=== PATIENT | female | born 1950 | race African-American/Black ===

== ENCOUNTER 2021-02-22 16:13 | Inpatient (IN) ==
[2021-02-22] MEDS ORDERED: BROVANA ONE (21:14)
[2021-02-22] MEDS ORDERED: PULMICORT NEB TX 0.5 MG NEB ONE (21:15)
[2021-02-22] MEDS ORDERED: Atrovent NEB TX 0.02% ONE (21:15)
[2021-02-22] MEDS: PULMICORT NEB TX 0.5 MG NEB SCH (21:20)
[2021-02-22] MEDS: Atrovent NEB TX 0.02% NEB SCH (21:20)
[2021-02-22] MEDS: BROVANA IN SCH (21:20)
[2021-02-22] MEDS ORDERED: SALINE 3% 15 ML NEB TX ONE (21:35)
[2021-02-22 21:56] LABS: BASOPHILS # (AUTO) 0.1 X10^3/uL (0.0-0.1); MEAN CORPUSCULAR VOLUME 72.1 fL (80.0-100.0); MEAN PLATELET VOLUME 9.1 fL (7.4-11.0)
[2021-02-22] MEDS: NS 1000 ML 1,000 ML IV SCH (22:00)
[2021-02-22 22:03] LABS: EOSINOPHILS # (AUTO) 0.3 x10^3/uL (0.0-0.2); EOSINOPHILS % (AUTO) 2.3 % (0.9-2.9); HEMATOCRIT 36.4 % (36.0-47.0); LYMPHOCYTES # (AUTO) 3.4 X10^3/uL (1.3-2.9); LYMPHOCYTES % (AUTO) 31.2 % (21.0-51.0); MEAN CORPUSCULAR HEMOGLOBIN 21.8 pg (27.0-34.0); MEAN CORPUSCULAR HGB CONC 30.3 g/dL (33.0-35.0); MONOCYTES # (AUTO) 0.9 x10^3/uL (0.3-0.8); MONOCYTES % (AUTO) 8.5 % (0.0-13.0); NEUTROPHILS # (AUTO) 6.3 x10^3/uL (2.2-4.8); PLATELET COUNT 324 X10^3/uL (150.0-450.0); RED BLOOD COUNT 5.05 X10^6/uL (3.5-5.4); RED CELL DISTRIBUTION WIDTH 14.9 % (11.6-16.5)
[2021-02-22 22:06] LABS: ALANINE AMINOTRANSFERASE 23 Units/L (12-78); ALBUMIN 3.7 g/dL (3.4-5.0); ALKALINE PHOSPHATASE 73 Units/L (46-116); ASPARTATE AMINO TRANSFERASE 14 Units/L (15-37); BLOOD UREA NITROGEN 16 mg/dL (7-18); CALCIUM 9.2 mg/dL (8.5-10.1); CARBON DIOXIDE 27.5 mmol/L (21-32); CHLORIDE 106 mmol/L (98-107); COR NA(FOR HYPERGLY) 141 mmol/L (136-145); SODIUM 141 mmol/L (136-145); eGFR NON BLACK RACES 58 (>60)
[2021-02-22] MEDS ORDERED: NS 1000 ML 1,000 ML ONE (22:11)
[2021-02-22 22:12] LABS: ANISOCYTOSIS SLIGHT; HYPOCHROMASIA SLIGHT; MICROCYTOSIS 1+; PLATELET MORPHOLOGY COMMENT NORMAL (NORMAL)
[2021-02-22 23:41] LABS: BILIRUBIN,URINE NEGATIVE (NEGATIVE); BLOOD/HEMOGLOBIN,URINE 2+ (NEGATIVE); GLUCOSE, URINE NEGATIVE (NEGATIVE); KETONES,URINE NEGATIVE (NEGATIVE); LEUKOCYTE ESTERASE ,URINE 3+ (NEGATIVE); NITRITES,URINE NEGATIVE (NEGATIVE); PROTEIN,URINE 1+ (NEGATIVE); UROBILINOGEN,URINE NORMAL (NORMAL)
[2021-02-22] MEDS: ROCEPHIN VIAL 1 GRAM 1 G in NS 100 ML IV + SPIKE MINIBAG* 100 ML IV SCH (23:45)
[2021-02-22 23:47] LABS: APPEARANCE,URINE CLOUDY (CLEAR); COLOR,URINE YELLOW (YELLOW)
[2021-02-22 23:48] LABS: BACTERIA,URINE 1+ /HPF (NEGATIVE); SQUAMOUS EPITHELIAL CELL,UR FEW /HPF (NEGATIVE); TRICHOMONAS,URINE FEW /HPF (NEGATIVE)
--- NOTE | 2021-02-23 06:25 | RAD ---
HISTORYCough, shortness of breathSTUDYChest AP portableCOMPARISONNoneFINDINGSThe heart is enlarged. No congestive heart failure is noted. No acute alveolar infiltrates or pleural effusions are identified. Bony thorax is unremarkable.IMPRESSIONCardiomegaly without congestive heart failureNo definite infiltratesElectronically signed by: JUAN LEÓN (Feb 23, 2021 06:23:06)
[2021-02-23] MEDS ORDERED: PATIENT'S HOME MEDICATION (Budesonide-Formoterol 160-4.5 mcg/actuation HFA aerosol inhaler IN SCH (09:00)
[2021-02-23 09:03] LABS: BASOPHILS # (AUTO) 0.1 X10^3/uL (0.0-0.1); BASOPHILS % (AUTO) 0.7 % (0.2-1.0); EOSINOPHILS # (AUTO) 0.2 x10^3/uL (0.0-0.2); EOSINOPHILS % (AUTO) 2.5 % (0.9-2.9); HEMATOCRIT 33.2 % (36.0-47.0); HEMOGLOBIN 10.2 g/dL (12.0-16.0); LYMPHOCYTES # (AUTO) 2.4 X10^3/uL (1.3-2.9); LYMPHOCYTES % (AUTO) 30.3 % (21.0-51.0); MEAN CORPUSCULAR HGB CONC 30.6 g/dL (33.0-35.0); MEAN CORPUSCULAR VOLUME 71.7 fL (80.0-100.0); MEAN PLATELET VOLUME 8.8 fL (7.4-11.0); MONOCYTES # (AUTO) 0.5 x10^3/uL (0.3-0.8); MONOCYTES % (AUTO) 6.9 % (0.0-13.0); NEUTROPHILS # (AUTO) 4.7 x10^3/uL (2.2-4.8); NEUTROPHILS % (AUTO) 59.6 % (42.0-75.0); PLATELET COUNT 326 X10^3/uL (150.0-450.0); RED BLOOD COUNT 4.64 X10^6/uL (3.5-5.4); RED CELL DISTRIBUTION WIDTH 15.6 % (11.6-16.5); WHITE BLOOD COUNT 7.9 X10^3/uL (3.6-10.0)
[2021-02-23 09:15] LABS: PLATELET MORPHOLOGY COMMENT NORMAL (NORMAL)
[2021-02-23] MEDS ORDERED: ZESTRIL TAB 5 MG PO SCH (09:15)
[2021-02-23 09:16] LABS: HYPOCHROMASIA 2+; MICROCYTOSIS SLIGHT
[2021-02-23] MEDS: LEVAQUIN PREMIX IV 500 MG 500 MG/100 ML BAG IV SCH (09:16)
[2021-02-23 09:20] LABS: ALANINE AMINOTRANSFERASE 19 Units/L (12-78); ALBUMIN 3.2 g/dL (3.4-5.0); ALKALINE PHOSPHATASE 82 Units/L (46-116); ASPARTATE AMINO TRANSFERASE 13 Units/L (15-37); BLOOD UREA NITROGEN 12 mg/dL (7-18); CALCIUM 8.5 mg/dL (8.5-10.1); CHLORIDE 106 mmol/L (98-107); COR CA(FOR HYPOALB) 9.1 mg/dL (8.5-10.1); COR NA(FOR HYPERGLY) 144 mmol/L (136-145); CREATININE 0.96 mg/dL (0.55-1.02); SODIUM 141 mmol/L (136-145); eGFR NON BLACK RACES > 60 (>60)
[2021-02-23] MEDS: PULMICORT NEB TX 0.5 MG NEB SCH ×2 (09:40→20:53)
[2021-02-23] MEDS: Atrovent NEB TX 0.02% NEB SCH ×4 (09:40→20:53)
[2021-02-23] MEDS: ROBITUSSIN DM PO SCH ×4 (09:47→20:46)
[2021-02-23] MEDS: SOLU-Medrol 40 MG VIAL IVP SCH ×3 (09:48→22:13)
[2021-02-23] MEDS: BROVANA IN SCH ×2 (10:00→20:45)
[2021-02-23] MEDS ORDERED: SOLU-Medrol 125 MG VIAL IVP SCH (10:00)
--- NOTE | 2021-02-23 12:39 | DR.H&P ---
H&P - History & Physical for Day of: H&P Date: 02/22/21 - Chief Complaint Chief Complaint: SOB, CCC, WHEEZING - History of Present Illness History of Present Illness: PT IS 70 WF DIRECT ADMIT FROM DR INFANTE OFFICE WITH CO SICK WITH SOB AND WHEEZING FOR A MONTH. PT REPORTS SHE WAS IN THE MEDICAL CENTER WITH PNEUMONIA LAST MONTH AND HAS CONTINUED WITH SOB, WHEEZING. PT HAS PMH OF ASTHMA, DENIES ANY KNOWN CARDIAC DISEASE. PT REPORTS HX OF HYPERTENSION, CURRENTLY NOT ON MEDICATION. PT HAS BEEN COVID NEGATIVE ON LAST ADMISSION AT THE MEDICAL CENTER. PT DENIES ANY N/V/D. PT ADMITTED FOR TREATMENT OF ACUTE RESP DISTRESS. - Past Medical History Past Medical History: Asthma, Hypertension - Past Surgical History Surgical History: Hysterectomy - Family History Family Medical History: Diabetes Mellitus, Hypertension - Social History Does patient currently use any type of tobacco product: No Have you used tobacco products in the last 12 months: No Type of Tobacco Use: None Alcohol Use: None - Medications Home Medications: hydrocodone Allergy (Verified 02/23/21 05:57) lorazepam Allergy (Verified 02/23/21 05:57) shrimp Allergy (Verified 02/23/21 10:21) CONTINUE taking the following medications albuterol sulfate [Ventolin HFA] 2 puff INHALATION PRN PRN 02/22/21 [History] budesonide-formoterol [Symbicort] 2 puff INHALATION BID 02/22/21 [History] fluticasone furoate-vilanterol [Breo Ellipta] 2 inh INHALATION DAILY 02/22/21 [History] hydroxyzine pamoate [Vistaril] 25 mg PO HS 02/22/21 [History] - Review of Systems Constitutional: Weakness Eyes: No Symptoms Reported ENT: No Symptoms Reported Respiratory: Shortness of Breath, SOB with Excertion, Wheezing Cardiovascular: No Symptoms Reported Gastrointestinal: No Symptoms Reported Genitourinary: No Symptoms Reported Musculoskeletal: No Symptoms Reported Neurological: Weakness - Physical Exam Vital Signs: Temperature 97.8 F Pulse Rate [Right Radial] 76 Pulse Rate 70 Respiratory Rate 18 Blood Pressure [Right Arm] 164/76 O2 Sat by Pulse Oximetry 99 Oriented: Normal Eyes: Normal Ear: Normal Nose: Normal Throat: Normal Respiratory: Wheezes Throughout, RLL Diminished Cardiovascular: Normal : Normal Auscultation: Bowel Sounds: Normal Palpation: Normal Tenderness: Normal Skin: Normal Musculoskeletal: Normal Psychiatric: Anxiety Affect: Anxious Speech Pattern: Clear, Appropriate - Assessment/Plan (1) Status asthmaticus with COPD (chronic obstructive pulmonary disease) Status: Acute Plan: ADMIT, SPUTUM CULTURE. COVID SWAB ON ADMISSION. IV ATBX, SUPPLEMENTAL O2, RESP THERAPY. ABG ON ROOM AIR, CXR ON ADMISSION. AM LABS, CONFIRM HOME MEDICATION, BP CONTROL (2) Acute bronchitis Status: Acute - Allergies Allergies/Adverse Reactions: Allergies Allergy/AdvReac Type Severity Reaction Status Date / Time hydrocodone Allergy Verified 02/23/21 05:57 lorazepam Allergy Verified 02/23/21 05:57 shrimp Allergy Verified 02/23/21 10:21
[2021-02-23] MEDS: VISTARIL PO SCH (20:45)
[2021-02-23] MEDS: ROCEPHIN VIAL 1 GRAM 1 G in NS 100 ML IV + SPIKE MINIBAG* 100 ML IV SCH (20:47)
[2021-02-23 21:48] VITALS: BMI 34.8
[2021-02-23] MEDS: NS 1000 ML 1,000 ML IV SCH (22:13)
[2021-02-24] MEDS: SOLU-Medrol 40 MG VIAL IVP SCH ×3 (05:04→21:12)
[2021-02-24 07:24] LABS: ALANINE AMINOTRANSFERASE 20 Units/L (12-78); ALBUMIN 3.5 g/dL (3.4-5.0); ALKALINE PHOSPHATASE 75 Units/L (46-116); ASPARTATE AMINO TRANSFERASE 9 Units/L (15-37); BLOOD UREA NITROGEN 12 mg/dL (7-18); CALCIUM 8.9 mg/dL (8.5-10.1); CARBON DIOXIDE 22.7 mmol/L (21-32); CHLORIDE 103 mmol/L (98-107); COR NA(FOR HYPERGLY) 144 mmol/L (136-145); CREATININE 1.16 mg/dL (0.55-1.02); SODIUM 140 mmol/L (136-145); TOTAL PROTEIN 7.7 g/dL (6.4-8.2); eGFR NON BLACK RACES 49 (>60)
[2021-02-24 07:32] LABS: BASOPHILS % (AUTO) 0.2 % (0.2-1.0); HEMATOCRIT 35.8 % (36.0-47.0); HEMOGLOBIN 10.7 g/dL (12.0-16.0); LYMPHOCYTES % (AUTO) 10.9 % (21.0-51.0); MEAN CORPUSCULAR HEMOGLOBIN 21.6 pg (27.0-34.0); MEAN CORPUSCULAR HGB CONC 29.9 g/dL (33.0-35.0); MEAN CORPUSCULAR VOLUME 72.2 fL (80.0-100.0); MEAN PLATELET VOLUME 8.9 fL (7.4-11.0); MONOCYTES # (AUTO) 0.5 x10^3/uL (0.3-0.8); MONOCYTES % (AUTO) 2.8 % (0.0-13.0); NEUTROPHILS # (AUTO) 15.8 x10^3/uL (2.2-4.8); NEUTROPHILS % (AUTO) 86.1 % (42.0-75.0); PLATELET COUNT 375 X10^3/uL (150.0-450.0); RED BLOOD COUNT 4.96 X10^6/uL (3.5-5.4); RED CELL DISTRIBUTION WIDTH 15.4 % (11.6-16.5); WHITE BLOOD COUNT 18.4 X10^3/uL (3.6-10.0)
[2021-02-24 07:50] LABS: HYPOCHROMASIA SLIGHT; MICROCYTOSIS SLIGHT; PLATELET MORPHOLOGY COMMENT NORMAL (NORMAL)
--- NOTE | 2021-02-24 08:28 | CT ---
HISTORYAsthmaSTUDYCT chest without contrastTechnique: Axial noncontrast images with coronal and sagittal reformats. Dose reduction procedures were used with mA/kv adjusted for body size. This examination is limited due to the lack of intravenous contrast. The examination was performed in this manner at the sole discretion of the ordering caregiver.COMPARISONNoneFINDINGSExamination of the mediastinum demonstrated thyromegaly to be present . This could be better evaluated sonographically. No mediastinal masses, enlarged mediastinal or enla rged hilar adenopathy or significant aortic abnormality is identified to the limitations of an unenha nced examination. No pleural effusions are identified. No chest wall or axillary abnormality is ident ified. Those portions of the upper abdominal organs visualized were within normal limits to the limit ations of an unenhanced examination. 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 Examination of the lung roldan demonst rated no significant nodules, masses, alveolar infiltrates, areas of consolidation, peribronchial thi ckening, or bronchiectasis.IMPRESSIONLungs clearThyromegaly which could be better evaluated sonograph icallyElectronically signed by: JUAN LEÓN (Feb 24, 2021 08:26:57)
[2021-02-24] MEDS: Atrovent NEB TX 0.02% NEB SCH ×4 (09:10→20:54)
[2021-02-24] MEDS: PULMICORT NEB TX 0.5 MG NEB SCH ×2 (09:10→20:54)
[2021-02-24] MEDS: BROVANA IN SCH ×2 (09:20→20:46)
[2021-02-24] MEDS: LEVAQUIN PREMIX IV 500 MG 500 MG/100 ML BAG IV SCH (10:22)
[2021-02-24] MEDS: ZESTRIL TAB 5 MG PO SCH (10:22)
[2021-02-24] MEDS: ROBITUSSIN DM PO SCH ×4 (10:22→21:08)
[2021-02-24] MEDS: LOVENOX INJ 40 MG SYR SC SCH (10:23)
[2021-02-24 11:16] LABS: ABG BASE EXCESS -1.8 mmol/L (-2.0-2.0); ABG HCO3 23.1 mmol/L (22-26)
[2021-02-24] MEDS ORDERED: LEVSIN/MAALOX/LIDOC VISC PO PRN (13:45)
--- NOTE | 2021-02-24 13:45 | PCM.PROG ---
Progress Note - Progress Note for Day of Date of Exam: 02/24/21 - Subjective Subjective: PT IS 70 BF DIRECT ADMIT FROM DR KESHA GALO OFFICE WITH ASTHMATIC BRONCHITIS, FAILED INPT AND OUTPT TREATMENT. PT WAS STARTED ON IV ROCEPHIN AND LEVAQUIN WITH IV SOLU MEDROL ON 02/23 WITH REPORTS OF FEELING A LITTLE BETTER TODAY. PT CO NOT RESTING WELL LAST NIGHT. PT WAS STARTED ON HERI NOPRIL 5MG PO DAILY, WITHOUT BP 160S SYSTOLIC, WILL INCREASED TO 10MG PO DAILY TODAY. PT DENIES ANY CHEST PAIN, CO GAS PAIN. PLAN TO OBTAIN CT CHEST TODAY, ROOM AIR ABG AND D DIMER. - Past Medical Family Social History Past Med/Fam/Surg Hx: No changes since H&P Allergies: Allergies hydrocodone Allergy (Verified 02/23/21 05:57) lorazepam Allergy (Verified 02/23/21 05:57) shrimp Allergy (Verified 02/23/21 10:21) - Review of Systems ROS: No change since H&P - Vital Signs and I&O's Vital Signs: Temperature 97.8 F Pulse Rate [Right Radial] 86 Pulse Rate 91 Respiratory Rate 18 Blood Pressure [Right Arm] 163/74 O2 Sat by Pulse Oximetry 97 Intake and Output: Intake & Output 02/22/21 02/23/21 02/24/21 02/25/21 11:59 11:59 11:59 11:59 Intake Total 200 / 200 1939 Balance 200 / 200 1939 - Physical Exam Oriented: Normal Eyes: Normal Ear: Normal Nose: Normal Throat: Normal Respiratory: Diminished, Wheezes Cardiovascular: Normal : Normal Auscultation: Bowel Sounds: Normal Tenderness: Normal Skin: Normal Musculoskeletal: Normal Psychiatric: Anxiety Affect: Anxious Speech Pattern: Clear, Appropriate - Laboratory and Diagnostics Result Diagrams: 02/24/21 06:59 02/24/21 06:59 Labs: 02/22/21 23:15 Urine,Clean Catch Urine Culture - Final 02/22/21 21:30 Sputum - Expectorated Sputum Sputum Culture - Preliminary 02/22/21 21:30 Sputum - Expectorated Sputum - Final Laboratory WBC 18.4 X10^3/uL (3.6-10.0) H D 02/24/21 06:59 RBC 4.96 X10^6/uL (3.5-5.4) 02/24/21 06:59 Hgb 10.7 g/dL (12.0-16.0) L 02/24/21 06:59 Hct 35.8 % (36.0-47.0) L 02/24/21 06:59 MCV 72.2 fL (80.0-100.0) L 02/24/21 06:59 MCH 21.6 pg (27.0-34.0) L 02/24/21 06:59 MCHC 29.9 g/dL (33.0-35.0) L 02/24/21 06:59 RDW 15.4 % (11.6-16.5) 02/24/21 06:59 Plt Count 375 X10^3/uL (150.0-450.0) 02/24/21 06:59 Plt Count Comment Adequate (ADEQUATE) 02/24/21 06:59 MPV 8.9 fL (7.4-11.0) 02/24/21 06:59 Neut % (Auto) 86.1 % (42.0-75.0) H 02/24/21 06:59 Lymph % (Auto) 10.9 % (21.0-51.0) L 02/24/21 06:59 [place] % (Auto) 2.8 % (0.0-13.0) 02/24/21 06:59 Eos % (Auto) 0.0 % (0.9-2.9) L 02/24/21 06:59 Baso % (Auto) 0.2 % (0.2-1.0) 02/24/21 06:59 Neut # (Auto) 15.8 x10^3/uL (2.2-4.8) H 02/24/21 06:59 Lymph # (Auto) 2.0 X10^3/uL (1.3-2.9) 02/24/21 06:59 [place] # (Auto) 0.5 x10^3/uL (0.3-0.8) 02/24/21 06:59 Eos # (Auto) 0.0 x10^3/uL (0.0-0.2) 02/24/21 06:59 Baso # (Auto) 0.0 X10^3/uL (0.0-0.1) 02/24/21 06:59 Absolute Nucleated RBC 0.0 /100WBC 02/24/21 06:59 Plt Morphology Comment Normal (NORMAL) 02/24/21 06:59 RBC Morphology Abnormal (NORMAL) A 02/24/21 06:59 Hypochromasia Slight A 02/24/21 06:59 Anisocytosis Slight A 02/22/21 21:40 Microcytosis Slight A 02/24/21 06:59 D-Dimer 1.60 ug/ml (0.0-0.57) H* 02/24/21 06:59 Sample Site Right brachial 02/24/21 11:10 ABG pH 7.380 (7.35-7.45) 02/24/21 11:10 ABG pCO2 39.0 mmHg (35.0-45.0) 02/24/21 11:10 ABG pO2 71.0 mmHg (80.0-100.0) L 02/24/21 11:10 ABG HCO3 23.1 mmol/L (22-26) 02/24/21 11:10 ABG O2 Saturation 94.0 % (90-100) 02/24/21 11:10 ABG Base Excess -1.8 mmol/L (-2.0-2.0) 02/24/21 11:10 Fam Test Na 02/24/21 11:10 A-a Gradient 30.0 mmHg 02/24/21 11:10 FiO2 21.0 02/24/21 11:10 Blood Gas Comments Marquita well aw 02/24/21 11:10 Sodium 140 mmol/L (136-145) 02/24/21 06:59 Corrected Sodium 144 mmol/L (136-145) 02/24/21 06:59 Potassium 4.4 mmol/L (3.5-5.1) 02/24/21 06:59 Chloride 103 mmol/L (98-107) 02/24/21 06:59 Carbon Dioxide 22.7 mmol/L (21-32) 02/24/21 06:59 BUN 12 mg/dL (7-18) 02/24/21 06:59 Creatinine 1.16 mg/dL (0.55-1.02) H 02/24/21 06:59 Est GFR (MDRD) Af Amer 60 (>60) 02/24/21 06:59 Est GFR (MDRD) Non-Af 49 (>60) L 02/24/21 06:59 Glucose 276 mg/dL (65-99) H 02/24/21 06:59 Hemoglobin A1c 8.4 % 02/23/21 08:48 Calcium 8.9 mg/dL (8.5-10.1) 02/24/21 06:59 Corrected Calcium TNP 02/24/21 06:59 Total Bilirubin 0.30 mg/dL (0.2-1.0) 02/24/21 06:59 AST 9 Units/L (15-37) L 02/24/21 06:59 ALT 20 Units/L (12-78) 02/24/21 06:59 Alkaline Phosphatase 75 Units/L (46-116) 02/24/21 06:59 Total Protein 7.7 g/dL (6.4-8.2) 02/24/21 06:59 Albumin 3.5 g/dL (3.4-5.0) 02/24/21 06:59 Globulin 4.2 g/dL (2.5-4.5) 02/24/21 06:59 Albumin/Globulin Ratio 0.8 Ratio (1.1-2.1) L 02/24/21 06:59 Specimen Type Clean catch urine 02/22/21 23:15 Urine Color Yellow (YELLOW) 02/22/21 23:15 Urine Appearance Cloudy (CLEAR) 02/22/21 23:15 Urine pH 6.0 (5.0 - 8.0) 02/22/21 23:15 Ur Specific [place] 1.020 (1.000-1.030) 02/22/21 23:15 Urine Protein 1+ (NEGATIVE) 02/22/21 23:15 Urine Glucose (UA) Negative (NEGATIVE) 02/22/21 23:15 Urine Ketones Negative (NEGATIVE) 02/22/21 23:15 Urine Occult Blood 2+ (NEGATIVE) 02/22/21 23:15 Urine Nitrite Negative (NEGATIVE) 02/22/21 23:15 Urine Bilirubin Negative (NEGATIVE) 02/22/21 23:15 Urine Urobilinogen Normal (NORMAL) 02/22/21 23:15 Ur Leukocyte Esterase 3+ (NEGATIVE) 02/22/21 23:15 Urine RBC 10-20 /HPF (0-3) A 02/22/21 23:15 Urine WBC 30-50 /HPF (0-5) A 02/22/21 23:15 Ur Squamous Epith Cells Few /HPF (NEGATIVE) 02/22/21 23:15 Urine Bacteria 1+ /HPF (NEGATIVE) 02/22/21 23:15 Urine Trichomonas Few /HPF (NEGATIVE) 02/22/21 23:15 Ur Culture Indicated? Yes/culture set up 02/22/21 23:15 SARS CoV-2 RNA Rapid CHEL Negative (NEGATIVE) 02/22/21 20:06 - Plan (1) Status asthmaticus with COPD (chronic obstructive pulmonary disease) Status: Acute Plan: SPUTUM CULTURE. COVID SWAB ON ADMISSION. IV ATBX, SUPPLEMENTAL O2, RESP THERAPY. ABG ON ROOM AIR, CXR ON ADMISSION. AM LABS, CONFIRM HOME MEDICATION, BP CONTROL (2) Acute bronchitis Status: Acute
[2021-02-24] MEDS: PEPCID 20 MG IV PREMIX* 20 MG/50 ML BAG IV SCH (14:01)
[2021-02-24] MEDS: NS 1000 ML 1,000 ML IV SCH ×2 (16:05→21:33)
[2021-02-24] MEDS: SINGULAIR TAB 10 MG PO SCH (21:09)
[2021-02-24] MEDS: VISTARIL PO SCH (21:09)
[2021-02-24] MEDS: ROCEPHIN VIAL 1 GRAM 1 G in NS 100 ML IV + SPIKE MINIBAG* 100 ML IV SCH (21:10)
[2021-02-25] MEDS: SOLU-Medrol 40 MG VIAL IVP SCH ×3 (05:06→20:57)
[2021-02-25 05:46] LABS: ALANINE AMINOTRANSFERASE 16 Units/L (12-78); ALBUMIN 3.3 g/dL (3.4-5.0); ALKALINE PHOSPHATASE 83 Units/L (46-116); ASPARTATE AMINO TRANSFERASE < 6 Units/L (15-37); BLOOD UREA NITROGEN 16 mg/dL (7-18); CALCIUM 8.6 mg/dL (8.5-10.1); CARBON DIOXIDE 22.5 mmol/L (21-32); CHLORIDE 103 mmol/L (98-107); COR CA(FOR HYPOALB) 9.2 mg/dL (8.5-10.1); COR NA(FOR HYPERGLY) 145 mmol/L (136-145); CREATININE 1.17 mg/dL (0.55-1.02); SODIUM 139 mmol/L (136-145); TOTAL PROTEIN 7.2 g/dL (6.4-8.2); eGFR NON BLACK RACES 49 (>60)
[2021-02-25 05:57] LABS: BASOPHILS # (AUTO) 0.1 X10^3/uL (0.0-0.1); BASOPHILS % (AUTO) 0.3 % (0.2-1.0); HEMATOCRIT 33.9 % (36.0-47.0); HEMOGLOBIN 10.1 g/dL (12.0-16.0); LYMPHOCYTES # (AUTO) 1.5 X10^3/uL (1.3-2.9); LYMPHOCYTES % (AUTO) 6.8 % (21.0-51.0); MEAN CORPUSCULAR HEMOGLOBIN 21.6 pg (27.0-34.0); MEAN CORPUSCULAR HGB CONC 29.9 g/dL (33.0-35.0); MEAN CORPUSCULAR VOLUME 72.2 fL (80.0-100.0); MEAN PLATELET VOLUME 9.5 fL (7.4-11.0); MONOCYTES % (AUTO) 4.4 % (0.0-13.0); NEUTROPHILS # (AUTO) 19.4 x10^3/uL (2.2-4.8); NEUTROPHILS % (AUTO) 88.5 % (42.0-75.0); PLATELET COUNT 369 X10^3/uL (150.0-450.0); RED BLOOD COUNT 4.69 X10^6/uL (3.5-5.4); RED CELL DISTRIBUTION WIDTH 15.5 % (11.6-16.5); WHITE BLOOD COUNT 21.9 X10^3/uL (3.6-10.0)
[2021-02-25 06:08] LABS: HYPOCHROMASIA SLIGHT; MICROCYTOSIS SLIGHT; PLATELET MORPHOLOGY COMMENT NORMAL (NORMAL)
[2021-02-25] MEDS: LEVAQUIN PREMIX IV 500 MG 500 MG/100 ML BAG IV SCH (09:08)
[2021-02-25] MEDS: PEPCID 20 MG IV PREMIX* 20 MG/50 ML BAG IV SCH (09:12)
[2021-02-25] MEDS: LOVENOX INJ 40 MG SYR SC SCH (09:13)
[2021-02-25] MEDS: ZESTRIL TAB 5 MG PO SCH (09:14)
[2021-02-25] MEDS: ROBITUSSIN DM PO SCH ×4 (09:15→20:57)
[2021-02-25] MEDS: BROVANA IN SCH ×2 (09:21→20:35)
[2021-02-25] MEDS: PULMICORT NEB TX 0.5 MG NEB SCH ×2 (09:21→20:40)
[2021-02-25] MEDS: Atrovent NEB TX 0.02% NEB SCH ×4 (09:21→20:40)
--- NOTE | 2021-02-25 10:26 | RAD ---
HISTORYAcute respiratory distressSTUDYChest AP [id number]/2021FINDINGSThe heart is mildly enlarged. No congestive heart failure is noted. No infiltrates or pleural effusions are identified. Bony thorax is unremarkable.IMPRESSIONMild cardiomegaly without congestive heart failureLungs clearElectronically signed by: JUAN LEÓN (Feb 25, 2021 10:24:19)
--- NOTE | 2021-02-25 12:47 | NM ---
HISTORYELEVATED D-DIMER, ACUTE RESPIRATORY DISTRESSSTUDYPERFUSION LUNG SCAN ONLYCOMPARISON[Chest radiograph from same day.]TECHNIQUE[Nuclear medicine perfusion scintigraphy. [5.3] mCi of technetium 99 M maa was administered.]FINDINGS[There is a stripe sign in both lungs. No suspicious perfusion defects. Chest radiograph demonstrated mild cardiomegaly.]IMPRESSION[Low probability] for pulmonary emboli based on modified PIOPED criteria.Electronically signed by: Davy Pitts (Feb 25, 2021 12:45:48)
[2021-02-25] MEDS: NS 1000 ML 1,000 ML IV SCH ×2 (16:11→21:34)
[2021-02-25] MEDS: SINGULAIR TAB 10 MG PO SCH (20:56)
[2021-02-25] MEDS: VISTARIL PO SCH (20:56)
[2021-02-25] MEDS: ROCEPHIN VIAL 1 GRAM 1 G in NS 100 ML IV + SPIKE MINIBAG* 100 ML IV SCH (20:59)
[2021-02-26 05:15] LABS: ALANINE AMINOTRANSFERASE 14 Units/L (12-78); ALBUMIN 3.2 g/dL (3.4-5.0); ALKALINE PHOSPHATASE 84 Units/L (46-116); ASPARTATE AMINO TRANSFERASE < 6 Units/L (15-37); BLOOD UREA NITROGEN 16 mg/dL (7-18); CALCIUM 8.6 mg/dL (8.5-10.1); CARBON DIOXIDE 24.8 mmol/L (21-32); CHLORIDE 103 mmol/L (98-107); COR CA(FOR HYPOALB) 9.2 mg/dL (8.5-10.1); COR NA(FOR HYPERGLY) 144 mmol/L (136-145); CREATININE 1.09 mg/dL (0.55-1.02); SODIUM 138 mmol/L (136-145); eGFR NON BLACK RACES 53 (>60)
[2021-02-26 05:30] LABS: BASOPHILS # (AUTO) 0.2 X10^3/uL (0.0-0.1); BASOPHILS % (AUTO) 0.8 % (0.2-1.0); HEMOGLOBIN 10.1 g/dL (12.0-16.0); LYMPHOCYTES # (AUTO) 1.4 X10^3/uL (1.3-2.9); LYMPHOCYTES % (AUTO) 7.5 % (21.0-51.0); MEAN CORPUSCULAR HEMOGLOBIN 21.7 pg (27.0-34.0); MEAN CORPUSCULAR HGB CONC 29.6 g/dL (33.0-35.0); MEAN CORPUSCULAR VOLUME 73.2 fL (80.0-100.0); MEAN PLATELET VOLUME 9.6 fL (7.4-11.0); MONOCYTES # (AUTO) 0.6 x10^3/uL (0.3-0.8); MONOCYTES % (AUTO) 3.4 % (0.0-13.0); NEUTROPHILS # (AUTO) 16.8 x10^3/uL (2.2-4.8); NEUTROPHILS % (AUTO) 88.3 % (42.0-75.0); PLATELET COUNT 326 X10^3/uL (150.0-450.0); RED BLOOD COUNT 4.65 X10^6/uL (3.5-5.4); RED CELL DISTRIBUTION WIDTH 15.6 % (11.6-16.5)
[2021-02-26 05:51] LABS: PLATELET MORPHOLOGY COMMENT NORMAL (NORMAL)
[2021-02-26] MEDS: PULMICORT NEB TX 0.5 MG NEB SCH ×2 (08:40→20:11)
[2021-02-26] MEDS: Atrovent NEB TX 0.02% NEB SCH ×4 (08:40→20:11)
[2021-02-26] MEDS: BROVANA IN SCH ×2 (08:50→20:20)
[2021-02-26] MEDS: LEVAQUIN PREMIX IV 500 MG 500 MG/100 ML BAG IV SCH (09:15)
[2021-02-26] MEDS: LOVENOX INJ 40 MG SYR SC SCH (09:16)
[2021-02-26] MEDS: PEPCID 20 MG IV PREMIX* 20 MG/50 ML BAG IV SCH (09:18)
[2021-02-26] MEDS: ZESTRIL TAB 5 MG PO SCH ×2 (09:18→21:01)
[2021-02-26] MEDS: SOLU-Medrol 40 MG VIAL IVP SCH ×2 (09:18→21:01)
[2021-02-26] MEDS: ROBITUSSIN DM PO SCH ×3 (09:30→21:01)
--- NOTE | 2021-02-26 10:54 | PCM.PROG ---
Progress Note - Progress Note for Day of Date of Exam: 02/26/21 - Subjective Subjective: Mrs. Oliver is a 40-year-old black female who is a patient of . She was admitted with status asthmaticus, failed both inpatient and outpatient treatment. Since admission, the patient has been on IV antibiotics, respiratory therapy, supplemental oxygen, and pulmonary toileting. The patient had an ABG with a PO2 of 71 on admission. She is currently utilizing oxygen via nasal cannula at 2 liters/minute. Her saturations have been 96-99% throughout the night and this morning. Today, she is alert and oriented, sitting up on the side of the bed. She continues with complaints of shortness of breath on exertion, but does admit to slight improvement since yesterday. The patient denies any chest pain. On examination, heart is regular in rate and rhythm. Bilateral lungs are noted with expiratory wheezing. Abdomen is round, soft, and non-tender with normal bowel sounds noted in all quadrants. Her vitals this morning were: 98.3-85-18-97%-185/89. Labs were obtained. Abnormal lab values include the following: WBC 19, HGB 10.1, HCT 34.0, CREATININE 1.09, GLUCOSE 365, AST <6, ALBUMIN 3.2. Sputum culture is currently showing moderate gram positive cocci. A perfusion lung scan was obtained yesterday and revealed a low probability for pulmonary emboli base on modified PIOPED criteria. She is currently receiving normal saline at 50 ml/hr, levaquin 500mg iv daily, rocephin 1g iv hs, solu-medrol 40mg iv q12h, singulair 10mg po hs, lisinopril 10mg po daily, vistaril 25mg po hs, robitussin dm 10 ml po qid, Pepcid 20mg iv daily, lovenox 40mg sc daily, brovana inhaler bid, pulmicort nebs bid, atrovent nebs qid. We will continue with current plan of care today. Otherwise, we plan to follow up with AM labs and chest xray and continue to monitor. Time spent on clinical assessment, reviewing labs and imaging, decision making, and documentation greater than 75 minutes. - Past Medical Family Social History Past Med/Fam/Surg Hx: No changes since H&P Allergies: Allergies hydrocodone Allergy (Verified 02/23/21 05:57) lorazepam Allergy (Verified 02/23/21 05:57) shrimp Allergy (Verified 02/23/21 10:21) - Review of Systems ROS: No change since H&P - Vital Signs and I&O's Vital Signs: Temperature 98.3 F Pulse Rate [Right Radial] 85 Pulse Rate 101 Respiratory Rate 18 Blood Pressure [Right Arm] 185/89 O2 Sat by Pulse Oximetry 99 Intake and Output: Intake & Output 02/23/21 02/24/21 02/25/21 02/26/21 11:59 11:59 11:59 11:59 Intake Total 200 / 200 1940 / 1940 1866 / 1866 2920 / 2920 Balance 200 / 200 1940 / 1940 186 / 186 2920 / 2920 - Physical Exam Oriented: Normal Eyes: Normal Ear: Normal Nose: Normal Throat: Normal Respiratory: Diminished, Wheezes Cardiovascular: Normal : Normal Auscultation: Bowel Sounds: Normal Palpation: Normal Tenderness: Normal Skin: Normal Musculoskeletal: Normal Psychiatric: Anxiety Affect: Anxious Speech Pattern: Clear, Appropriate - Laboratory and Diagnostics Result Diagrams: 02/26/21 04:38 02/26/21 04:38 Labs: 02/22/21 21:30 Sputum - Expectorated Sputum Sputum Culture - Final 02/22/21 21:30 Sputum - Expectorated Sputum - Final 02/22/21 23:15 Urine,Clean Catch Urine Culture - Final Laboratory WBC 19.0 X10^3/uL (3.6-10.0) H 02/26/21 04:38 RBC 4.65 X10^6/uL (3.5-5.4) 02/26/21 04:38 Hgb 10.1 g/dL (12.0-16.0) L 02/26/21 04:38 Hct 34.0 % (36.0-47.0) L 02/26/21 04:38 MCV 73.2 fL (80.0-100.0) L 02/26/21 04:38 MCH 21.7 pg (27.0-34.0) L 02/26/21 04:38 MCHC 29.6 g/dL (33.0-35.0) L 02/26/21 04:38 RDW 15.6 % (11.6-16.5) 02/26/21 04:38 Plt Count 326 X10^3/uL (150.0-450.0) 02/26/21 04:38 Plt Count Comment Adequate (ADEQUATE) 02/26/21 04:38 MPV 9.6 fL (7.4-11.0) 02/26/21 04:38 Neut % (Auto) 88.3 % (42.0-75.0) H 02/26/21 04:38 Lymph % (Auto) 7.5 % (21.0-51.0) L 02/26/21 04:38 [place] % (Auto) 3.4 % (0.0-13.0) 02/26/21 04:38 Eos % (Auto) 0.0 % (0.9-2.9) L 02/26/21 04:38 Baso % (Auto) 0.8 % (0.2-1.0) 02/26/21 04:38 Neut # (Auto) 16.8 x10^3/uL (2.2-4.8) H 02/26/21 04:38 Lymph # (Auto) 1.4 X10^3/uL (1.3-2.9) 02/26/21 04:38 [place] # (Auto) 0.6 x10^3/uL (0.3-0.8) 02/26/21 04:38 Eos # (Auto) 0.0 x10^3/uL (0.0-0.2) 02/26/21 04:38 Baso # (Auto) 0.2 X10^3/uL (0.0-0.1) H 02/26/21 04:38 Absolute Nucleated RBC 0.1 /100WBC 02/26/21 04:38 Total Counted 100 02/25/21 05:04 Neutrophils % (Manual) 91 % (39-76) H 02/25/21 05:04 Lymphocytes % (Manual) 6 % (13-43) L 02/25/21 05:04 Monocytes % (Manual) 3 % (4-9) L 02/25/21 05:04 Plt Morphology Comment Normal (NORMAL) 02/26/21 04:38 RBC Morphology Normal (NORMAL) 02/26/21 04:38 Hypochromasia Slight A 02/25/21 05:04 Anisocytosis Slight A 02/22/21 21:40 Microcytosis Slight A 02/25/21 05:04 D-Dimer 1.60 ug/ml (0.0-0.57) H* 02/24/21 06:59 Sample Site Right brachial 02/24/21 11:10 ABG pH 7.380 (7.35-7.45) 02/24/21 11:10 ABG pCO2 39.0 mmHg (35.0-45.0) 02/24/21 11:10 ABG pO2 71.0 mmHg (80.0-100.0) L 02/24/21 11:10 ABG HCO3 23.1 mmol/L (22-26) 02/24/21 11:10 ABG O2 Saturation 94.0 % (90-100) 02/24/21 11:10 ABG Base Excess -1.8 mmol/L (-2.0-2.0) 02/24/21 11:10 Fam Test Na 02/24/21 11:10 A-a Gradient 30.0 mmHg 02/24/21 11:10 FiO2 21.0 02/24/21 11:10 Blood Gas Comments Marquita well aw 02/24/21 11:10 Sodium 138 mmol/L (136-145) 02/26/21 04:38 Corrected Sodium 144 mmol/L (136-145) 02/26/21 04:38 Potassium 4.5 mmol/L (3.5-5.1) 02/26/21 04:38 Chloride 103 mmol/L (98-107) 02/26/21 04:38 Carbon Dioxide 24.8 mmol/L (21-32) 02/26/21 04:38 BUN 16 mg/dL (7-18) 02/26/21 04:38 Creatinine 1.09 mg/dL (0.55-1.02) H 02/26/21 04:38 Est GFR (MDRD) Af Amer > 60 (>60) 02/26/21 04:38 Est GFR (MDRD) Non-Af 53 (>60) L 02/26/21 04:38 Glucose 365 mg/dL (65-99) H 02/26/21 04:38 Hemoglobin A1c 8.4 % 02/23/21 08:48 Calcium 8.6 mg/dL (8.5-10.1) 02/26/21 04:38 Corrected Calcium 9.2 mg/dL (8.5-10.1) 02/26/21 04:38 Total Bilirubin 0.20 mg/dL (0.2-1.0) 02/26/21 04:38 AST < 6 Units/L (15-37) L 02/26/21 04:38 ALT 14 Units/L (12-78) 02/26/21 04:38 Alkaline Phosphatase 84 Units/L (46-116) 02/26/21 04:38 Total Protein 7.0 g/dL (6.4-8.2) 02/26/21 04:38 Albumin 3.2 g/dL (3.4-5.0) L 02/26/21 04:38 Globulin 3.8 g/dL (2.5-4.5) 02/26/21 04:38 Albumin/Globulin Ratio 0.8 Ratio (1.1-2.1) L 02/26/21 04:38 Specimen Type Clean catch urine 02/22/21 23:15 Urine Color Yellow (YELLOW) 02/22/21 23:15 Urine Appearance Cloudy (CLEAR) 02/22/21 23:15 Urine pH 6.0 (5.0 - 8.0) 02/22/21 23:15 Ur Specific [place] 1.020 (1.000-1.030) 02/22/21 23:15 Urine Protein 1+ (NEGATIVE) 02/22/21 23:15 Urine Glucose (UA) Negative (NEGATIVE) 02/22/21 23:15 Urine Ketones Negative (NEGATIVE) 02/22/21 23:15 Urine Occult Blood 2+ (NEGATIVE) 02/22/21 23:15 Urine Nitrite Negative (NEGATIVE) 02/22/21 23:15 Urine Bilirubin Negative (NEGATIVE) 02/22/21 23:15 Urine Urobilinogen Normal (NORMAL) 02/22/21 23:15 Ur Leukocyte Esterase 3+ (NEGATIVE) 02/22/21 23:15 Urine RBC 10-20 /HPF (0-3) A 02/22/21 23:15 Urine WBC 30-50 /HPF (0-5) A 02/22/21 23:15 Ur Squamous Epith Cells Few /HPF (NEGATIVE) 02/22/21 23:15 Urine Bacteria 1+ /HPF (NEGATIVE) 02/22/21 23:15 Urine Trichomonas Few /HPF (NEGATIVE) 02/22/21 23:15 Ur Culture Indicated? Yes/culture set up 02/22/21 23:15 SARS CoV-2 RNA Rapid CHEL Negative (NEGATIVE) 02/22/21 20:06 - Plan (1) Status asthmaticus with COPD (chronic obstructive pulmonary disease) Status: Acute Plan: SPUTUM CULTURE, IV ATBX, SUPPLEMENTAL O2, RESP THERAPY, NEB TX, MONITOR LABS AND CHEST XRAY (2) Acute bronchitis Status: Acute Qualifiers: Bronchitis organism: unspecified organism Qualified Code(s): J20.9 - Acute bronchitis, unspecified
[2021-02-26] MEDS: NS 1000 ML 1,000 ML IV SCH (19:38)
[2021-02-26] MEDS ORDERED: Atrovent NEB TX 0.02% ONE (19:56)
[2021-02-26] MEDS ORDERED: PULMICORT NEB TX 0.5 MG NEB ONE (19:56)
[2021-02-26] MEDS ORDERED: BROVANA ONE (19:56)
[2021-02-26] MEDS: ROCEPHIN VIAL 1 GRAM 1 G in NS 100 ML IV + SPIKE MINIBAG* 100 ML IV SCH (21:01)
[2021-02-26] MEDS: VISTARIL PO SCH (21:01)
[2021-02-26] MEDS: SINGULAIR TAB 10 MG PO SCH (21:01)
[2021-02-27 05:22] LABS: BASOPHILS # (AUTO) 0.1 X10^3/uL (0.0-0.1); BASOPHILS % (AUTO) 0.5 % (0.2-1.0); HEMATOCRIT 34.8 % (36.0-47.0); HEMOGLOBIN 10.2 g/dL (12.0-16.0); LYMPHOCYTES # (AUTO) 1.3 X10^3/uL (1.3-2.9); LYMPHOCYTES % (AUTO) 7.9 % (21.0-51.0); MEAN CORPUSCULAR HEMOGLOBIN 21.4 pg (27.0-34.0); MEAN CORPUSCULAR HGB CONC 29.3 g/dL (33.0-35.0); MEAN PLATELET VOLUME 9.7 fL (7.4-11.0); MONOCYTES # (AUTO) 0.7 x10^3/uL (0.3-0.8); NEUTROPHILS # (AUTO) 14.4 x10^3/uL (2.2-4.8); NEUTROPHILS % (AUTO) 87.6 % (42.0-75.0); PLATELET COUNT 324 X10^3/uL (150.0-450.0); RED BLOOD COUNT 4.77 X10^6/uL (3.5-5.4); RED CELL DISTRIBUTION WIDTH 15.4 % (11.6-16.5); WHITE BLOOD COUNT 16.4 X10^3/uL (3.6-10.0)
[2021-02-27 05:27] LABS: ALANINE AMINOTRANSFERASE 15 Units/L (12-78); ALBUMIN 3.2 g/dL (3.4-5.0); ALKALINE PHOSPHATASE 103 Units/L (46-116); ASPARTATE AMINO TRANSFERASE 7 Units/L (15-37); BLOOD UREA NITROGEN 17 mg/dL (7-18); CALCIUM 8.4 mg/dL (8.5-10.1); CARBON DIOXIDE 27.5 mmol/L (21-32); CHLORIDE 103 mmol/L (98-107); COR NA(FOR HYPERGLY) 146 mmol/L (136-145); CREATININE 1.07 mg/dL (0.55-1.02); SODIUM 139 mmol/L (136-145); TOTAL PROTEIN 6.9 g/dL (6.4-8.2); eGFR NON BLACK RACES 54 (>60)
--- NOTE | 2021-02-27 05:58 | RAD ---
HISTORYSOB history of asthmaSTUDYAP [id number]/15/2020FINDINGSHeart size remains upper normal. The lungs are grossly clear. Indistinct definition of the left diaphragm is probably related to technical factors rather than developing infiltrate. There is no obvious pneumonia, edema or pneumothorax.IMPRESSIONNo definite interval change or acute chest abnormality.Electronically signed by: PALLAVI OG (Feb 27, 2021 05:56:40)
[2021-02-27 06:15] LABS: HYPOCHROMASIA SLIGHT; MICROCYTOSIS SLIGHT; PLATELET MORPHOLOGY COMMENT NORMAL (NORMAL)
[2021-02-27 08:12] VITALS: BP 189/88
[2021-02-27] MEDS: LEVAQUIN PREMIX IV 500 MG 500 MG/100 ML BAG IV SCH (09:16)
[2021-02-27] MEDS: ROBITUSSIN DM PO SCH ×2 (09:19→11:20)
[2021-02-27] MEDS: SOLU-Medrol 40 MG VIAL IVP SCH (09:19)
[2021-02-27] MEDS: LOVENOX INJ 40 MG SYR SC SCH (09:19)
[2021-02-27] MEDS: Atrovent NEB TX 0.02% NEB SCH (09:20)
[2021-02-27] MEDS: PULMICORT NEB TX 0.5 MG NEB SCH (09:20)
[2021-02-27] MEDS: PEPCID 20 MG IV PREMIX* 20 MG/50 ML BAG IV SCH (09:20)
[2021-02-27] MEDS: ZESTRIL TAB 5 MG PO SCH (09:20)
[2021-02-27] MEDS: BROVANA IN SCH (09:30)
[2021-02-27] MEDS: NS 1000 ML 1,000 ML IV SCH (11:20)
== END 2021-02-27 11:25 | disposition home or self-care (01) | DRG 203 ==
LOC: MED/SURG → OBSVTOIN 19:39
PROVIDERS: ADMIT Internal Medicine; ATTEND Internal Medicine
DX: J45.902 Unspecified asthma with status asthmaticus; J20.8 Acute bronchitis due to other specified organisms; Z20.822 Contact with and (suspected) exposure to COVID-19; R06.02 Shortness of breath; I10 Essential (primary) hypertension; R06.03 Acute respiratory distress; Z79.01 Long term (current) use of anticoagulants; K21.9 Gastro-esophageal reflux disease without esophagitis; J44.9 Chronic obstructive pulmonary disease, unspecified